=== PATIENT | female | born 1945 | race Caucasian/White ===

== ENCOUNTER 2023-05-13 08:03 | Emergency (ER) | payer MEDICARE ==
[~2023-05-13] VITALS: Ht 162.6 cm; Wt 80.9 kg
[2023-05-13 08:08] VITALS: TEMP 98.2
[2023-05-13] MEDS ORDERED: LINA145C PO (08:19)
[2023-05-13] MEDS ORDERED: ATEN-73 PO (08:19)
[2023-05-13] MEDS ORDERED: VENL-191 PO (08:19)
[2023-05-13] MEDS ORDERED: LISI-894 PO (08:19)
[2023-05-13] MEDS ORDERED: PANT-31 PO (08:19)
[2023-05-13] MEDS ORDERED: VENL-68 PO (08:19)
[2023-05-13] MEDS ORDERED: ATOR20TA PO (08:19)
[2023-05-13] MEDS ORDERED: MECL-302 PO (08:19)
[2023-05-13] MEDS ORDERED: TRAZ150T79 PO (08:19)
[2023-05-13] MEDS ORDERED: GABA-1216 PO (08:19)
[2023-05-13] MEDS ORDERED: ACETAMINOPHEN 500 MG TABLET PO ONE (09:15)
[2023-05-13] MEDS ORDERED: PERTUSS(ACELL),DIPH,TET VAC/PF 0.5 ML SYRINGE IM. ONE (09:15)
[2023-05-13] MEDS ORDERED: BACITRACIN 0.9 GM PACKET OINTMENT TP ONE (09:15)
[2023-05-13 10:30] LABS: BASOPHILS % (AUTO) 0.4 % (0.0-2.0); EOSINOPHILS % (AUTO) 3.4 % (1.0-6.0); HEMATOCRIT 38.3 % (36-46); HEMOGLOBIN 12.2 g/dL (12.0-16.0); LYMPHOCYTES % (AUTO) 22.7 % (22.0-44.0); MEAN CORPUSCULAR HEMOGLOBIN 26.3 pg (26.0-34.0); MEAN CORPUSCULAR HGB CONC 31.8 G/dL (31.0-37.0); MEAN CORPUSCULAR VOLUME 83 fL (80-100); MONOCYTES # (AUTO) 0.4 K/uL (0.1-1.0); MONOCYTES % (AUTO) 9.1 % (2.0-9.0); NEUTROPHILS # (AUTO) 2.7 K/uL (1.8-7.7); NEUTROPHILS % (AUTO) 64.4 % (40.0-70.0); PLATELET COUNT (AUTO) 198 K/uL (150-450); RED BLOOD CELL COUNT(AUTO) 4.64 MIL/uL (4.00-5.20); RED CELL DISTRIBUTION WIDTH 14.9 % (11.5-14.5); WHITE BLOOD COUNT (AUTO) 4.3 K/uL (4.5-11.0)
[2023-05-13 10:43] LABS: CALCIUM, TOTAL 8.8 mg/dL (8.8-10.5); CREATININE 1.04 mg/dL (0.60-1.30); POTASSIUM 4.4 mmol/L (3.5-5.1)
[2023-05-13 10:49] LABS: ALBUMIN 2.9 g/dL (3.4-5.0); BILIRUBIN,TOTAL 0.4 mg/dL (0.1-1.0); TOTAL PROTEIN, SERUM 5.6 g/dL (6.4-8.2)
[2023-05-13 10:55] LABS: TROPONIN I-HIGH SENSITIVITY 10 ng/L (<51)
[2023-05-13 11:28] VITALS: BP 133/70; PULSE 84; RESP 14
[2023-05-13] MEDS ORDERED: ACET-66 PO (11:55)
== END 2023-05-13 12:40 | disposition home or self-care (01) ==
LOC: EMS 08:04
DX: S62.316A Displaced fracture of base of fifth metacarpal bone, right hand, initial encounter for closed fracture (principal); S41.111A Laceration without foreign body of right upper arm, initial encounter; S00.83XA Contusion of other part of head, initial encounter; R53.1 Weakness; F32.A Depression, unspecified; I10 Essential (primary) hypertension; Z96.649 Presence of unspecified artificial hip joint; W01.0XXA Fall on same level from slipping, tripping and stumbling without subsequent striking against object, initial encounter; Y93.01 Activity, walking, marching and hiking; Y92.89 Other specified places as the place of occurrence of the external cause; Y99.8 Other external cause status
CPT/HCPCS: 70450; 70486; 80053; 84484; 85025; 90471; 90715; 93005; 99285